=== PATIENT | female | born 1980 | race Hispanic/Latino ===

== ENCOUNTER 2021-06-30 11:33 | Emergency (ER) | payer BC, OTHER ==
[~2021-06-30] VITALS: Ht 167.6 cm; Wt 104.3 kg
[2021-06-30] MEDS ORDERED: KETOROLAC 30MG VIAL (30MG/ML) IM ONE (17:00)
[2021-06-30] MEDS ORDERED: LIDOCAINE HCL MPF 1% 5ML VIAL IJ SCH (17:00)
[2021-06-30] MEDS ORDERED: TETANUS/DIPHTHERIA TOXOID [ADULT] 0.5 ML VIAL IM ONE (17:00)
[2021-06-30 17:03] VITALS: BP 127/67
== END 2021-06-30 17:12 | disposition home or self-care (01) ==
LOC: EDH 11:33
DX: S61.012A Laceration without foreign body of left thumb without damage to nail, initial encounter (principal); I10 Essential (primary) hypertension; W45.8XXA Other foreign body or object entering through skin, initial encounter; Y93.89 Activity, other specified; Y92.89 Other specified places as the place of occurrence of the external cause; Y99.8 Other external cause status
CPT/HCPCS: 12001; 90471; 90714